=== PATIENT | female | born 1990 | race Hispanic/Latino ===

== ENCOUNTER 2016-10-23 07:13 | Emergency (ER) | payer OTHER ==
[~2016-10-23] VITALS: Ht 157.5 cm; Wt 83.9 kg
[2016-10-23] MEDS ORDERED: SAFYRAL TABLET1 EACH PO (08:11)
[2016-10-23 08:26] LABS: ABSOLUTE BASOPHIL COUNT 0 /CUMM (0.0-0.2); ABSOLUTE EOSINOPHIL COUNT 0.1 /CUMM (0.0-0.7); ABSOLUTE GRANULOCYTE CT 15.5 /CUMM (1.4-6.5); ABSOLUTE LYMPH COUNT 0.6 /CUMM (1.2-3.4); ABSOLUTE MONOCYTE COUNT 0.2 /CUMM (0.10-0.60); BASOPHIL % 0.1 % (0.0-2.0); EOSINOPHIL % 0.4 % (0-5); HEMATOCRIT 42.8 % (37-47); MEAN CORPUSCULAR HGB 27.3 PG (27.0-31.0); MEAN CORPUSCULAR HGB CONC 33.6 G/DL (33.0-37.0); MEAN CORPUSCULAR VOLUME 81.3 FL (81.0-99.0); PLATELET COUNT 256 /CUMM (130-400); RBC DISTRIBUTION WIDTH 13.5 % (11.5-14.5); RED BLOOD CELL CT 5.27 /CUMM (4.20-5.40); WHITE BLOOD CELL COUNT 16.4 /CUMM (4.8-10.8)
[2016-10-23 08:28] LABS: GRANULOCYTE % 94.5 % (42.2-75.2)
--- NOTE | 2016-10-23 08:36 | ED GI/GU/ABDOMINAL COMPLAINT ---
History of Present Illness General Chief Complaint: Nausea, Vomiting, Diarrhea Stated Complaint: PER PT WHOLE FAMILY SICK +V/N/D Source: patient Exam Limitations: no limitations Allergies Coded Allergies: peanut (Intermediate, ITCHY THROAT 10/23/16) Reconcile Medications Drospir/Eth Estra/Levomefol Ca (Safyral Tablet) 3-0.03(21) TABLET 1 TAB PO DAILY BCP (Reported) Ondansetron (Zofran Odt) 4 MG TAB.RAPDIS 1 TAB SL TID NAUSEA Triage Note: PT TO ED WITH C/O NAUSEA, VOMITING, DIARRHEA SINCE 1 AM. Triage Nurses Notes Reviewed? yes ? n Is pt currently ? No Associated Symptoms: abdominal pain, nausea/vomiting HPI: 26 yo previously healthy F presenting with AP, N/V/D. Nausea since 1:00 this AM with 7-8 episodes of NBNB emesis, unable to tolerate PO, associated watery, loose, nonbloody diarrhea x 8 episodes. Some intermittent cramppy upper abdominal pain, lasts <1 min at a time, moderate to severe intensity, non- radiating, unclear precipitiating/palliating factors. (+) Sick contacts, 3 yo daughter with similar Sx x 2 days, denies recent travel. Takes OCPS, unlikely to be , denies urinary or vaginal Sx. Denies fevers, chills, chest pain, SOB, myalgias, arthralgias, neurologic Sx. (STEF DO,ANNABEL) Vital Signs & Intake/Output Vital Signs & Intake/Output Vital Signs Date Time Temp Pulse Resp B/P Pulse O2 O2 Flow FiO2 Ox Delivery Rate 10/23 917 98.7 88 20 98/60 100 Room Air 10/23 07 98.1 108 20 138/89 98 Room Air Room Air Past History Travel History Traveled to [place] past 21 day No Medical History Any Pertinent Medical History? none Neurological: NONE EENT: NONE Cardiovascular: NONE Respiratory: NONE Gastrointestinal: NONE Hepatic: NONE Renal: NONE Musculoskeletal: NONE Psychiatric: NONE Endocrine: NONE Blood Disorders: NONE Cancer(s): NONE GUEST SERVICES COORDINATOR/Reproductive: NONE Surgical History Surgical History: Psychosocial History What is your primary language Romanian Tobacco Use: Current Daily Use Daily Tobacco Use Amount/Type: => 5 Cigarettes daily ETOH Use: denies use Illicit Drug Use: denies illicit drug use Family History Hx Contributory? No (ANNABEL FINCH MD) Review of Systems Review of Systems Constitutional: Reports: weakness. EENTM: Reports: no symptoms. Respiratory: Reports: no symptoms. Cardiovascular: Reports: no symptoms. GI: Reports: diarrhea, nausea, vomiting. Genitourinary: Reports: no symptoms. Musculoskeletal: Reports: no symptoms. Skin: Reports: no symptoms. Neurological/Psychological: Reports: no symptoms. Hematologic/Endocrine: Reports: no symptoms. Immunologic/Allergic: Reports: no symptoms. All Other Systems: Reviewed and Negative (ANNABEL FINCH MD) Physical Exam Physical Exam General Appearance: well developed/nourished, no apparent distress, alert, awake , comfortable Head: atraumatic, normal appearance Eyes: Bilateral: normal appearance. Ears, Nose, Throat, Mouth: hearing grossly normal Neck: supple, full range of motion Respiratory: normal breath sounds, no respiratory distress Cardiovascular: tachycardia Gastrointestinal: normal bowel sounds, non-tender Back: normal inspection Comments: Abdomen: Soft, Non-TTP throughout, no rebound or guarding Core Measures ACS in differential dx? No Severe Sepsis Present: No Septic Shock Present: No (ANNABEL FINCH MD) Progress Differential Diagnosis: appendicitis, cholecystitis, gastritis, pancreatitis, peptic ulcer, PUD/GERD, Gastroenteritis Initial ED EKG: none (ANNABEL FINCH MD) Plan of Care: Orders Procedure Date/time Status URINE 10/23 0745 Complete URINALYSIS 10/23 0745 Complete LIPASE 10/23 0745 Complete COMPREHENSIVE METABOLIC PANEL 10/23 0745 Complete CBC WITHOUT DIFFERENTIAL 10/23 0745 Complete Laboratory Tests 10/23/16 0845: Urine Color TRAY, Urine Clarity CLEAR, Urine pH 7.0, Ur Specific [place] 1.020, Urine Protein 30 H, Urine Ketones TRACE H, Urine Nitrite NEG, Urine Bilirubin NEG@ICTO, Urine Urobilinogen 0.2, Ur Leukocyte Esterase NEG, Ur Microscopic SEDIMENT EXAMINED, Urine RBC RARE, Ur Epithelial Cells FEW, Urine Mucus MANY H, Urine Hemoglobin NEG, Urine Glucose NEG, Urine Test NEGATIVE 10/23/16 0807: Anion Gap 13, Estimated GFR > 60, BUN/Creatinine Ratio 24.3, Glucose 122 H, Calcium 10.0, Total Bilirubin 1.0, AST 18, ALT 29, Alkaline Phosphatase 81, Total Protein 7.8, Albumin 4.6, Globulin 3.2, Albumin/Globulin Ratio 1.4, Lipase 46, CBC w Diff MAN DIFF ORDERED, RBC 5.27, MCV 81.3, MCH 27.3, RDW 13.5, MPV 10.0, Gran % 94.5 H, Lymphocytes % 3.9 L, Monocytes % 1.1 L, Eosinophils % 0.4, Basophils % 0.1, Absolute Granulocytes 15.5 H, Absolute Lymphocytes 0.6 L , Absolute Monocytes 0.2, Absolute Eosinophils 0.1, Absolute Basophils 0, Platelet Estimate ADEQUATE, Normocytic RBCs VERIFIED, Normochromic RBCs VERIFIED , PUBS MCHC 33.6 Physcician MDM: 26 yo previosuly healthy F presenting with N/V/D x 1 day, intermitent AP. Tachycardic in low 100s, well appearing, abdominal exam as above. DDx: Viral Gastroenteritis, Gastritis, less likely biliary pathology, early appendicitis. 1L NS, zofran, toradol given with resolution of abdominal pains and nausea, improvement in HR to 80s. U preg negative, UA not suggestive of infection. CBC with mild leukocytosis. CMP, lipase unremarkable. On re- examination patient subjectively improved, requesting discharge, tolerated PO well x 2 in ED without emesis. D/Eric wit return precautions, plan to f/u with PMD, zofran for nausea. The plan of care was discussed with the patient and her who expressed agreement and understanding. D/W Dr. Gallego. (STEF DO,ANNABEL) Departure Departure Disposition: HOME OR SELF CARE Condition: Stable Clinical Impression Primary Impression: Nausea and vomiting Qualifiers: Vomiting type: unspecified Vomiting Intractability: non-intractable Qualified Code: R11.2 - Nausea with vomiting, unspecified Secondary Impressions: Abdominal pain Qualifiers: Abdominal location: epigastric Qualified Code: R10.13 - Epigastric pain Diarrhea Qualifiers: Diarrhea type: unspecified type Qualified Code: R19.7 - Diarrhea, unspecified Referrals: SARA DO,PHOEBE Rivera (PCP/Family) Additional Instructions: Take Tylenol or ibuprofen for abdominal pain. Take zofran for nausea. Follow up with your primary care physician. Return to the ED for any new, worsening, or concerning symptoms. Departure Forms: Customer Survey General Discharge Information Prescriptions: Current Visit Scripts Ondansetron (Zofran Odt) 1 TAB SL TID #20 TAB (STEF DO,ANNABEL) Resident Co-Sign Statement Statement: ED Attending supervision documentation- [x] I saw and evaluated the patient. I have also reviewed all the pertinent lab results and diagnostic results. I agree with the findings and the plan of care as documented in the Resident's documentation. [] I have reviewed the ED Record and agree with the Resident's documentation. [] Additions or exceptions (if any) to the Resident's note and plan are summarized below: [] (HODA DO,RICHARD Luna)
[2016-10-23] MEDS ORDERED: ZOFRAN ODT4 M1 SL (09:34)
[2016-10-23 09:49] VITALS: BP 101/66
== END 2016-10-23 09:49 ==
LOC: ERH 07:13
PROVIDERS: Student in an Organized Health Care Education/Training Program
DX: R11.2 Nausea with vomiting, unspecified (principal); R19.7 Diarrhea, unspecified; R10.10 Upper abdominal pain, unspecified
CPT/HCPCS: 81001; 81025; 96361; 96374; 96375; J1885; J2405